=== PATIENT | male | born 1980 | race Caucasian/White ===

== ENCOUNTER → 2020-12-17 | Day surgery (SDC) | payer MEDICARE, MEDICAID ==
[~2020-12-17] MED LIST: CARVEDILOL25 MG PO; CEPHALEXIN 500500 M2 PO; DIABETIC MEDICATION; HUMULIN 70100 UNIT/1 SQ; HYDRALAZINE 2525 M1 PO; ISOSORBIDE DINI30 MG PO; JANUVIA50 MG PO; LIPITOR40 MG PO; NORCO 5-325 TA1 EACH PO; NORVASC5 MG PO; PAXIL10 MG; PRENATABS RX T1 EAC1 PO; REMICADE 1100 MG/VIA; VITAMIN D310 MC3
--- NOTE | ~2020-12-17 | PROC ---
[facility] [address] [place] [address] PROCEDURE REPORT Name: YUAN MATTHEWS JR Room: [facility].#: [id number] Admission: 12/17/20 Attend Phys: Jaron Rhoades DO Discharge: Date of : 76 Report #: [id number] THIS REPORT FOR: cc: FAM - No family physician/PCP FAM - No family physician/PCP [facility],Medical Records Staff ~ For GI report, please see the Provation report in Perceptive 7 content. By: [id number] Records Staff JOSS /ESTELA
[2020-12-17 09:17] LABS: HEMATOCRIT 25.7 % (42.0-52.0); HEMOGLOBIN 8.2 gm/dL (14.0-18.0); MCH 27.8 pg (26.0-34.0); MCHC 31.9 g/dL (28.0-37.0); MCV 87.3 fL (80.0-100.0); MPV 7.2 fl. (7.2-11.1); RBC 2.94 mil/uL (4.50-6.00); RDW-CV 16.4 % (10.5-14.5); WBC 9.6 thou/uL (4.0-11.0)
[2020-12-17 09:25] LABS: CALCIUM 6.7 mg/dL (8.5-10.1); CREATININE 17.4 mg/dL (0.6-1.3); POTASSIUM 4.4 mmol/L (3.5-5.1)
--- NOTE | 2020-12-23 13:07 | PATH ---
[facility] [address] [place] [address] PATHOLOGY RPT PROCEDURE Name: CRAIG ALVAREZ JR Room: [facility] M.R.#: [id number] Admission: 12/17/20 Date of : 76 Discharge: Report #: [id number] Path Case #: [id number] [facility] Accession Number: [id number] . 01 Material submitted: . stomach - ANTRAL BIOPSY FOR H. PYLORI . 01 Clinical history: . EGD AND COLONOSCOPY KIDNEY TRANSPLANT, CROHN'S, ACID REFLUX . 02 Diagnosis: Antral biopsy: - Mild nonspecific chronic antral gastritis, negative for Helicobacter pylori organisms, granulomas and dysplasia. (GELACIO:campbell; 12/19/2020) . Special stain: H. pylori immuno QMS 12/19/2020 1124 Local . 02 Electronically signed: . Ar Calhoun MD, Pathologist NPI- [id number] . 01 Gross description: . The specimen is received in formalin, labeled "Craig Alvarez ., antral biopsy". Received are two segments of pale amezcua tissue measuring 0.3 and 0.6 cm in maximum dimensions. The specimen is submitted entirely in cassette A1. (CAA; 12/18/2020) QAC/QA 12/18/2020 0931 Local . 02 Pathologist provided ICD-10: K29.50 . 02 CPT . 730365, K49369 Specimen Comment: A courtesy copy of this report has been sent to [phone] Specimen Comment: Report sent to Specimen Comment: A duplicate report has been generated due to demographic updates. Performed at: [address] [id number] MD Clem Sher MD Phone: [phone] Performed at: [address] [id number] [place] [address] PATHOLOGY RPT PROCEDURE Name: CRAIG ALVAREZ JR Room: [facility].#: [id number] Admission: 12/17/20 Date of : 76 Discharge: Report #: [id number] Path Case #: [id number] MD Ar Calhoun MD Phone: [phone]
== END | disposition home or self-care (01) ==
LOC: M.SUR 08:19
PROVIDERS: Anesthesiology; ATTEND Internal Medicine Gastroenterology
DX: K50.10 Crohn's disease of large intestine without complications (principal); K64.4 Residual hemorrhoidal skin tags; K29.50 Unspecified chronic gastritis without bleeding; K26.9 Duodenal ulcer, unspecified as acute or chronic, without hemorrhage or perforation; I12.9 Hypertensive chronic kidney disease with stage 1 through stage 4 chronic kidney disease, or unspecified chronic kidney disease; E11.22 Type 2 diabetes mellitus with diabetic chronic kidney disease; N18.9 Chronic kidney disease, unspecified; G47.30 Sleep apnea, unspecified; F17.210 Nicotine dependence, cigarettes, uncomplicated; Z98.890 Other specified postprocedural states; Z79.899 Other long term (current) drug therapy; Z20.822 Contact with and (suspected) exposure to COVID-19; Z88.8 Allergy status to other drugs, medicaments and biological substances